=== PATIENT | male | born 1995 | race Caucasian/White ===

== ENCOUNTER 2017-06-18 01:37 | Emergency (ER) | payer BC ==
[~2017-06-18] VITALS: Ht 175.3 cm; Wt 61.8 kg
[2017-06-18 01:43] VITALS: Ht 175.3 cm; Wt 61.8 kg
[2017-06-18] MEDS ORDERED: ACETAMINOPHEN 500 MG TAB PO STA (01:49)
[2017-06-18] MEDS ORDERED: IBUPROFEN 800 MG TAB PO STA (01:49)
[2017-06-18] MEDS ORDERED: IBUPROFEN 200 MG TAB ONE ×2 (01:50)
[2017-06-18] MEDS ORDERED: SODIUM CHLORIDE 0.9% 1000ML 2,000 ML IV STA (01:51)
[2017-06-18] MEDS ORDERED: ACETAMINOPHEN 500 MG TAB PO ONE (01:51)
[2017-06-18 02:25] LABS: BASO % 0.1 %; BASO ABS # 0.01 K/uL (0-0.2); HEMATOCRIT 45.3 % (42-52); HEMOGLOBIN 15.9 g/dL (14.0-18.0); IG# 0.04 K/uL (0.00-0.02); LYMPH % 6.8 %; LYMPH ABS # 1.03 K/uL (1.2-3.4); MEAN CELL VOLUME 86.6 fL (80-100); MEAN CORPUSCULAR HEMOGLOBIN 30.4 pg (25-34); MEAN CORPUSCULAR HGB CONC 35.1 g/dl (32-36); MEAN PLATELET VOLUME 11.4 fL (7.4-10.4); MONO % 9.4 %; MONO ABS # 1.41 K/uL (0.11-0.59); NEUT % 83.4 %; NEUT ABS # 12.58 K/uL (1.4-6.5); PLATELET COUNT 140 K/uL (130-400); RED CELL DISTRIBUTION WIDTH CV 13.5 % (11.5-14.5); RED CELL DISTRIBUTION WIDTH SD 42.8 fL (36.4-46.3); WHITE BLOOD COUNT 15.07 K/uL (4.8-10.8)
[2017-06-18] MEDS ORDERED: AMOXICILLIN 250 MG CAP PO STA (02:26)
[2017-06-18] MEDS ORDERED: LIDOCAINE HCL 2% VISC SOLN 20 ML UDC MT STA (02:29)
[2017-06-18 02:43] LABS: CALCIUM 9.2 mg/dl (8.5-10.1); CREATININE 1.33 mg/dl (0.60-1.40); POTASSIUM 3.2 mmol/L (3.5-5.1)
[2017-06-18] MEDS ORDERED: POTASSIUM CHLORIDE 10 MEQ TABCR PO STA (02:49)
[2017-06-18 03:08] LABS: INFLUENZA B ANTIGEN Neg for Influ B (NEG)
[2017-06-18 03:16] VITALS: BP 100/63; PULSE 91; TEMP 37.7; O2SAT 98
--- NOTE | 2017-06-18 03:22 | EMERGENCY ROOM VISIT NOTE ---
History First contact with patient: 01:48 Chief Complaint: FEVER Stated Complaint: 104 FEVER,FATIGUE History of Present Illness The patient is a 21 year old male who presents to the Emergency Room with complaints of fever, chills, sore throat and body aches for the past day. Patient not taking anything for his fever. No flu shot. No sick contacts. No recent travel. Patient denies chest pain, dyspnea, cough, congestion, vomiting , diarrhea, neck stiffness, abdominal pain. He is tolerating p.o. fluids but has a lack of appetite. Review of Systems An 10 system review of systems was completed with positives and pertinent negatives listed in the HPI. Past Medical/Surgical History None Social History Smoking Status: Never Smoker Smokeless Tobacco Use: No Alcohol Use: none Drug Use: none Occupation Status: [email or web address] student Current/Historical Medications No Active Prescriptions or Reported Meds Physical Exam Vital Signs Date Time Temp Pulse Resp B/P (MAP) Pulse Ox O2 Delivery O2 Flow Rate FiO2 06/18/17 03:16 37.7 91 16 100/63 98 Room Air 06/18/17 01:43 39.5 121 18 113/72 96 Room Air Physical Exam VITALS: Vitals are noted on the nurse's note and reviewed by myself. Vital signs febrile. GENERAL: Alert male, in no acute distress, nondiaphoretic, well-developed well- nourished. SKIN: The skin was without rashes, erythema, edema, or bruising. There is no tenting of the skin. Capillary reflex less than 2 seconds. HEAD: Normocephalic atraumatic. EARS: External auditory canals clear, tympanic membranes pearly huntley without erythema or effusion bilaterally. EYES: Pupils equal round and reactive to light and accommodation. Conjunctivae without injection, sclerae without icterus. Extraocular movements intact. NOSE: Patent, turbinates without inflammation or discharge. No sinus tenderness. MOUTH: Mucous membranes moist. Pharynx with erythema and exudate. Tonsils are erythematous without abscess. Uvula midline. Airway patent. Tongue does not deviate. NECK: Supple without nuchal rigidity. Submandibular lymphadenopathy. No thyromegaly. Cervical spine is nontender. No JVD. HEART: Regular rate and rhythm without murmurs gallops or rubs. LUNGS: Clear to auscultation bilaterally without wheezes, rales or rhonchi. No retractions or accessory muscle use. ABDOMEN: Positive bowel sounds x 4. Normal tympanic percussion. Soft, nontender, without masses or organomegaly. Hayes sign negative. No guarding or rebound tenderness. No CVA tenderness MUSCULOSKELETAL: No muscle atrophy, erythema, or edema noted. NEURO: Patient was alert and oriented to person place and time. Normal sensation to light and sharp touch. No focal neurological deficits. Medical Decision & Procedures Laboratory Results 06/18/17 02:02 Red Blood Count 5.23, Mean Corpuscular Volume 86.6, Mean Corpuscular Hemoglobin 30.4, Mean Corpuscular Hemoglobin Concent 35.1, Mean Platelet Volume 11.4, Neutrophils (%) (Auto) 83.4, Lymphocytes (%) (Auto) 6.8, Monocytes (%) (Auto) 9.4, Eosinophils (%) (Auto) 0.0, Basophils (%) (Auto) 0.1, Neutrophils # (Auto) 12.58, Lymphocytes # (Auto) 1.03, Monocytes # (Auto) 1.41, Eosinophils # (Auto) 0.00, Basophils # (Auto) 0.01 06/18/17 02:02 Test 06/18/17 01:50 06/18/17 02:02 Influenza Type A Antigen Neg for Influ A (NEG) Influenza Type B Antigen Neg for Influ B (NEG) White Blood Count 15.07 K/uL (4.8-10.8) Red Blood Count 5.23 M/uL (4.7-6.1) Hemoglobin 15.9 g/dL (14.0-18.0) Hematocrit 45.3 % (42-52) Mean Corpuscular Volume 86.6 fL (80-100) Mean Corpuscular Hemoglobin 30.4 pg (25-34) Mean Corpuscular Hemoglobin Concent 35.1 g/dl (32-36) Platelet Count 140 K/uL (130-400) Mean Platelet Volume 11.4 fL (7.4-10.4) Neutrophils (%) (Auto) 83.4 % Lymphocytes (%) (Auto) 6.8 % Monocytes (%) (Auto) 9.4 % Eosinophils (%) (Auto) 0.0 % Basophils (%) (Auto) 0.1 % Neutrophils # (Auto) 12.58 K/uL (1.4-6.5) Lymphocytes # (Auto) 1.03 K/uL (1.2-3.4) Monocytes # (Auto) 1.41 K/uL (0.11-0.59) Eosinophils # (Auto) 0.00 K/uL (0-0.5) Basophils # (Auto) 0.01 K/uL (0-0.2) RDW Standard Deviation 42.8 fL (36.4-46.3) RDW Coefficient of Variation 13.5 % (11.5-14.5) Immature Granulocyte % (Auto) 0.3 % Immature Granulocyte # (Auto) 0.04 K/uL (0.00-0.02) Anion Gap 8.0 mmol/L (3-11) Est Creatinine Clear Calc Drug Dose 78.1 ml/min Estimated GFR () 89.2 Estimated GFR (Non- 77.0 BUN/Creatinine Ratio 6.3 (10-20) Calcium Level 9.2 mg/dl (8.5-10.1) Medications Administered Medications (Trade) Dose Ordered Sig/Martell Route Start Time Stop Time Status Last Admin Dose Admin Acetaminophen (Tylenol Tab) 1,000 mg NOW STAT PO 06/18/17 01:49 06/18/17 01:50 DC 06/18/17 01:53 1,000 MG Ibuprofen (Advil Tab) 400 mg STK-MED ONCE .ROUTE 06/18/17 01:50 06/18/17 01:51 DC 06/18/17 01:55 400 MG Ibuprofen (Advil Tab) 400 mg STK-MED ONCE .ROUTE 06/18/17 01:50 06/18/17 01:51 DC 06/18/17 01:54 400 MG Sodium Chloride 2,000 ml @ 999 mls/hr Q2H1M STAT IV 06/18/17 01:51 06/18/17 03:51 06/18/17 02:05 999 MLS/HR Amoxicillin (Amoxil Cap) 500 mg NOW STAT PO 06/18/17 02:26 06/18/17 02:27 DC 06/18/17 02:54 500 MG Lidocaine HCl (Viscous Lidocaine 2% Soln) 10 ml NOW STAT MT 06/18/17 02:29 06/18/17 02:30 DC 06/18/17 02:54 10 ML ED Course Prior records/ancillary studies reviewed. Triage Nursing notes reviewed. Additional history obtained from friend. The patient's history was concerning for a sore throat. Differential diagnosis: Etiologies such as viral syndrome, tonsillitis, streptococcal pharyngitis, mononucleosis, peritonsillar abscess, retropharyngeal abscess, otitis, pneumonia , influenza, as well as others were entertained. ER treatment provided: Amoxicillin, IV fluids, viscous lidocaine On reassessment the patient felt better. Diagnostics interpreted by me: The labs revealed positive strep test. Hypokalemia and this is replaced orally neg flu This appears to be consistent with strep pharyngitis. Patient had no signs of abscess or airway compromise. He was started on antibiotics. He was advised to take medications as directed, rest, stay well-hydrated and follow-up health services in a few days or here in the ER sooner for high fevers, neck stiffness , difficulty swallowing, worsening signs or symptoms or as needed. By the evaluation outlined above emergent etiologies such as peritonsillar abscess, retropharyngeal abscess, otitis, pneumonia, meningitis, urinary tract infection , sepsis, bacteremia, as well as others were deemed relatively unlikely. The pt informed about the findings as listed above. All questions were answered and pleased with the treatment. Return instructions were outlined and the patient was discharged in stable condition. Outpatient prescription management: Amoxil Referral: The patient was referred back to their primary care physician for follow-up in 2 to 3 days for a recheck of the current condition. The chart was completed utilizing [employer] Speech voice recognition software. Grammatical errors, random word insertions, pronoun errors, and incomplete sentences are an occassional consequence of this system due to software limitations, ambient noise, and hardware issues. Any formal questions or concerns about the content, text, or information contained within the body of this dictation should be directly addressed to the physician sales assistant displays for clarification. Medical Decision As above Medication Reconcilliation Current Medication List: was personally reviewed by me Blood Pressure Screening Patient's blood pressure: Normal blood pressure Impression Primary Impression: Strep pharyngitis Departure Information Dispostion Home / Self-Care Condition GOOD Prescriptions No Active Prescriptions or Reported Meds Referrals [facility] (PCP) Patient Instructions My [facility] Additional Instructions Stay at home until you are 24 hours fever free as you are highly contagious. Amoxicillin 500 m tablet 3 times a day for 10 days.Any medication can cause an allergic reaction, stop the pills immediately and return to the ER for rash, hives, breathing difficulties, or swelling. Acetaminophen(Tylenol) may be used for fever or pain. Use 1000mg every six hours as needed. Avoid using more than 3000mg in a 24 hour period. (AND/OR) Ibuprofen(Motrin, Advil) may be used for fever or pain. Use 600mg every six hours as needed. Take with food. Avoid using more than 2400mg in a 24 hour period. Do not use 2400mg per day for more than three consecutive days without physician direction. Prolonged inappropriate use can lead to stomach upset or ulcers. Afrin nasal spray: 2-3 sprays to each nostril twice daily as needed for congestion. Do not use for more than 3-4 days because it can lead to worsening rebound congestion. Pseudoephedrine(Sudaphed): 30-60mg every 6 hours as needed for nasal congestion. Do not take this with other stimulant products or supplements. Rest and drink plenty of fluids. Controlling your fever with Tylenol and Ibuprofen as above will make you feel better. Wash your hands after nose blowing, sneezing, or coughing. Most germs are spread through contact, therefore improper hygiene may result in your close contacts and loved ones becoming ill just like you. Continue current medications. Return to the ER for severe headache, neck stiffness, chest pain, difficulty breathing, fevers, vomiting, worsening of your condition, or as needed. Follow up with your primary physician this week for a recheck of your current condition.
[2017-06-18] MEDS ORDERED: AMOX500C3 PO (03:23)
== END 2017-06-18 03:30 | disposition home or self-care (01) ==
LOC: C.EDB 01:40 → C.EDA 03:30
DX: J02.0 Streptococcal pharyngitis (principal)